=== PATIENT | male | born 1970 | race Caucasian/White ===

== ENCOUNTER 2024-08-21 06:03 | Day surgery (SDC) | payer OTHER ==
[2024-08-20 10:48] VITALS: BMI 21.6
[~2024-08-21 06:03] MED LIST: LACTATED RINGERS 1,000 ML IV SCH
[2024-08-21 06:49] VITALS: TEMP 96.9
[2024-08-21] MEDS ORDERED: PROPOFOL 10 MG/ML 20 ML VIAL IV ONE (06:59)
[2024-08-21] MEDS: IV FLUID CONTINUATION 1,000 ML IV ONE (07:01)
[2024-08-21] MEDS: LIDOCAINE 2% INJ 20 MG/ML SQ ONE ×2 (07:09→07:15)
[2024-08-21 07:28] VITALS: RESP 14
[2024-08-21 07:43] VITALS: BP 109/78; PULSE 69
[2024-08-21 07:52] LABS: Basophils # (A) 0.17 10*3/uL (0.00-0.10); Basophils % (A) 2.1 %; Eosinophils # (A) 0.28 10*3/uL (0.04-0.35); Eosinophils % (A) 3.5 %; HCT 41.8 % (39.6-50.0); HGB 14.5 g/dL (13.0-17.0); Lymphocytes # (A) 1.41 10*3/uL (0.90-5.00); Lymphocytes % (A) 17.6 %; MCH 29.6 pg (27.0-32.0); MCHC 34.7 g/dL (32.0-37.0); MCV 85.3 fL (80.0-97.0); Monocytes # (A) 0.55 10*3/uL (0.20-1.00); Monocytes % (A) 6.9 %; Neutrophils # (A) 5.56 10*3/uL (1.80-7.70); Neutrophils % (A) 69.5 %; Platelet Count 688 10*3/uL (140-440); RBC 4.90 10*6/uL (4.40-5.60); RDW 12.9 % (11.5-14.5); WBC 8.00 10*3/uL (4.50-10.00)
--- NOTE | 2024-08-21 10:21 | OP ---
OPERATIVE REPORT DATE OF SERVICE : PREOPERATIVE DIAGNOSIS: Thrombocytosis. POSTOPERATIVE DIAGNOSIS: Thrombocytosis. PROCEDURE PERFORMED: Bone marrow biopsy with general and local sedation. DESCRIPTION OF PROCEDURE: After being placed in the left lateral decubitus position, general anesthesia was administered, the right posterior iliac spine was palpated, followed by palpation of the right posterior iliac crest. This area was sterilized with three swabs of Betadine and three swabs of alcohol, followed by placement of the sterile drape. A 10 mL of 1% local lidocaine was applied to the periosteum and subcutaneous tissues. A 0.3 cm incision was then made into the subcutaneous tissue, followed by placement of a 4-inch Jamshidi needle. Approximately 17 mL of aspirate and 1 cm core were obtained on the first attempt. The patient tolerated the procedure well with less than 1 mL of blood loss. He is to return to the postoperative area in stable condition. Core biopsy and aspirate will be sent for morphology, flow cytometry, FISH, and NGS. We will follow up on the results in clinic. MMODL / IJN: [id number] /
== END 2024-08-21 07:56 | disposition home or self-care (01) ==
LOC: OR 06:03
PROVIDERS: ATTEND Internal Medicine Hematology & Oncology
DX: D75.839 Thrombocytosis, unspecified (principal); M19.90 Unspecified osteoarthritis, unspecified site; F17.290 Nicotine dependence, other tobacco product, uncomplicated; Z79.82 Long term (current) use of aspirin; Z79.1 Long term (current) use of non-steroidal anti-inflammatories (NSAID)
CPT/HCPCS: 85025; 85045; 38222; J2704; J2003